=== PATIENT | male | born 1995 | race American Indian/Alaskan Native ===

== ENCOUNTER 2018-03-06 10:43 | Inpatient (IN) | payer BC, MEDICAID ==
[2018-03-06 11:59] LABS: BASO # 0.02 K/mm3 (0.0-2.0); BASO % 0.3 % (0.0-3.0); EOS # 0.6 (0.0-0.7); EOS % 7.2 % (1.5-5.0); GRAN # 4.88 (1.4-6.5); GRAN % 62.7 % (50.0-68.0); LYMPH # 1.7 (1.2-3.4); LYMPH % 22.1 % (22.0-35.0); MEAN CELL VOLUME 73.9 fl (80.0-105.0); MEAN CORPUSCULAR HEMOGLOBIN 23.4 pg (25.0-35.0); MEAN CORPUSCULAR HGB CONC 31.7 g/dl (31.0-37.0); MEAN PLATELET VOLUME 10.5 fl (7.0-11.0); MONO # 0.6 (0.1-0.6); MONO % 7.7 % (1.0-6.0); RBC 5.55 10^6/uL (3.5-6.1); RED CELL DISTRIBUTION WIDTH 13.8 % (11.5-14.5); WHITE BLOOD COUNT 7.8 10^3/ul (4.5-11.0)
[2018-03-06 12:01] LABS: URINE APPEARANCE CLEAR (CLEAR); URINE BILIRUBIN NEGATIVE (NEGATIVE); URINE BLOOD NEGATIVE (NEGATIVE); URINE COLOR YELLOW (YELLOW); URINE GLUCOSE (UA) NEGATIVE (NEGATIVE); URINE LEUKOCYTE ESTERASE NEGATIVE Leu/uL (NEGATIVE); URINE PROTEIN 30 mg/dL (<30 mg/dL); URINE UROBILINOGEN 0.2 E.U./dL (<1 E.U./dL)
--- NOTE | 2018-03-06 12:08 | ED PDOC ---
Arrival/HPI - General Historian: Patient <Meaghan Olea A - Last Filed: 03/06/18 20:07> <João Figueroa - Last Filed: 03/14/18 20:57> - General Chief Complaint: Psychiatric Evaluation Time Seen by Provider: 03/06/18 10:56 - History of Present Illness Narrative History of Present Illness (Text): 03/06/18 13:24 22yo male with PMHx of bipolar, depression who present with complaint of depression and visual hallucination x few days. Patient states he didn't take his psych medications for 2days. States he feels that people are talking about him. He sees a psychiatrist at [facility]. He denies SI/HI, somatic complaint , recent drug use. (Meaghan Olea A) Past Medical History - Provider Review Nursing Documentation Reviewed: Yes - Cardiac Hx Cardiac Disorders: No - Pulmonary Hx Respiratory Disorders: Yes Hx Asthma: Yes - Neurological Hx Neurological Disorder: No - HEENT Hx HEENT Disorder: No - Renal Hx Renal Disorder: No - Endocrine/Metabolic Hx Endocrine Disorders: No - Hematological/Oncological Hx Blood Disorders: No - Integumentary Hx Dermatological Disorder: No - Musculoskeletal/Rheumatological Hx Musculoskeletal Disorders: No - Gastrointestinal Hx Gastrointestinal Disorders: No - Genitourinary/Gynecological Hx Genitourinary Disorders: No - Psychiatric Hx Psychophysiologic Disorder: Yes Hx Bipolar Disorder: Yes Hx Depression: Yes Hx Substance Use: Yes (CANNABIS) <Meaghan Olea A - Last Filed: 03/06/18 20:07> Family/Social History - Physician Review Nursing Documentation Reviewed: Yes Family/Social History: Unknown Family HX Smoking Status: Current Some Days Smoker Hx Alcohol Use: Yes Frequency of alcohol use: Socially Hx Substance Use: Yes (CANNABIS) <Meaghan Olea A - Last Filed: 03/06/18 20:07> Allergies/Home Meds <Meaghan Olea A - Last Filed: 03/06/18 20:07> <João Figueroa - Last Filed: 03/14/18 20:57> Allergies/Adverse Reactions: Allergies No Known Allergies Allergy (Verified 03/06/18 23:48) Home Medications: Home Meds Medication Instructions Recorded Confirmed Ergocalciferol (Vitamin D2) 1 cap PO QWK 03/06/18 03/06/18 [Vitamin D2] Risperidone [Risperdal] 2 mg PO HS 03/06/18 03/06/18 Review of Systems - Physician Review All systems were reviewed & negative as marked: Yes - Review of Systems Constitutional: Normal Eyes: Normal ENT: Normal Respiratory: Normal Cardiovascular: Normal Gastrointestinal: Normal Genitourinary Male: Normal Musculoskeletal: Normal Skin: Normal Neurological: Normal Endocrine: Normal Hemo/Lymphatic: Normal Psychiatric: Depression <Meaghan Olea A - Last Filed: 03/06/18 20:07> Physical Exam Vital Signs Reviewed: Yes Temperature: Afebrile Blood Pressure: Normal Pulse: Regular Respiratory Rate: Normal Appearance: Positive for: Well-Appearing, Non-Toxic, Comfortable Pain Distress: None Mental Status: Positive for: Alert and Oriented X 3 - Systems Exam Head: Present: Atraumatic, Normocephalic Pupils: Present: PERRL Extroacular Muscles: Present: EOMI Conjunctiva: Present: Normal Mouth: Present: Moist Mucous Membranes Neck: Present: Normal Range of Motion Respiratory/Chest: Present: Clear to Auscultation, Good Air Exchange. No: Respiratory Distress, Accessory Muscle Use Cardiovascular: Present: Regular Rate and Rhythm, Normal S1, S2. No: Murmurs Abdomen: No: Tenderness, Distention, Peritoneal Signs Back: Present: Normal Inspection Upper Extremity: Present: Normal Inspection. No: Cyanosis, Edema Lower Extremity: Present: Normal Inspection. No: Edema Neurological: Present: GCS=15, CN II-XII Intact, Speech Normal Skin: Present: Warm, Dry, Normal Color. No: Rashes Psychiatric: Present: Alert, Oriented x 3, Normal Insight, Normal Concentration <Meaghan Olea A - Last Filed: 03/06/18 20:07> Vital Signs Temp Pulse Resp BP Pulse Ox 03/06/18 14:41 98.0 F 77 120/89 99 03/06/18 14:19 98.0 F 79 18 99 03/06/18 11:05 99.5 F 77 16 117/74 98 Medical Decision Making <Meaghan Olea A - Last Filed: 03/06/18 20:07> <João Figueroa - Last Filed: 03/14/18 20:57> ED Course and Treatment: 03/06/18 20:07 PT was medically cleared for psych evaluation and was seen by JANINE Pruitt. She DC with the psychiatrist and pt was admitted for bipolar EKG Sinus rhythm with 1st degree AV block @69bpm. CXR NAD Lab was unremarkable. (Meaghan Olea) - Lab Interpretations Lab Results: 03/06/18 11:52 03/06/18 11:52 Lab Results 03/06/18 11:52: Alcohol, Quantitative < 10 03/06/18 11:52: Salicylates < 1 L, Acetaminophen < 10.0 L 03/06/18 11:52: Urine Opiates Screen Negative, Urine Methadone Screen Negative, Ur Barbiturates Screen Negative, Ur Phencyclidine Scrn Negative, Ur Amphetamines Screen Negative, U Benzodiazepines Scrn Negative, U Oth Cocaine Metabols Negative, U Cannabinoids Screen Negative 03/06/18 11:52: Sodium 142, Potassium 4.3, Chloride 102, Carbon Dioxide 27, Anion Gap 17, BUN 15, Creatinine 0.9, Est GFR ( Amer) > 60, Est GFR (Non- Af Amer) > 60, Random Glucose 111 H, Calcium 10.0, Magnesium 1.8, Total Bilirubin 0.2, AST 37, ALT 60 H, Alkaline Phosphatase 49, Total Protein 7.7, Albumin 4.6, Globulin 3.2, Albumin/Globulin Ratio 1.4 03/06/18 11:52: Urine Color Yellow, Urine Appearance Clear, Urine pH 6.0, Ur Specific [place] 1.025, Urine Protein 30 H, Urine Glucose (UA) Negative, Urine Ketones Negative, Urine Blood Negative, Urine Nitrate Negative, Urine Bilirubin Negative, Urine Urobilinogen 0.2, Ur Leukocyte Esterase Negative, Urine RBC Negative, Urine WBC 0 - 2, Ur Epithelial Cells None, Urine Bacteria Mod 03/06/18 11:52: WBC 7.8, RBC 5.55, Hgb 13.0 L, Hct 41.0 L, MCV 73.9 L, MCH 23.4 L, MCHC 31.7, RDW 13.8, Plt Count 286, MPV 10.5, Gran % 62.7, Lymph % (Auto) 22.1, [place] % (Auto) 7.7 H, Eos % (Auto) 7.2 H, Baso % (Auto) 0.3, Gran # 4.88, Lymph # (Auto) 1.7, [place] # (Auto) 0.6, Eos # (Auto) 0.6, Baso # (Auto) 0.02 - RAD Interpretation Radiology Orders: 03/06/18 13:58 CHEST PORTABLE [RAD] Stat - Medication Orders Current Medication Orders: Acetaminophen (Tylenol 325mg Tab) 650 mg PO Q6H PRN PRN Reason: Pain, moderate (4-7) Al Hydrox/Mg Hydrox/Simethicone (Maalox Plus 30 Ml) 30 ml PO DAILY PRN PRN Reason: Upset Stomach Benztropine Mesylate (Cogentin) 1 mg PO [facility] Last Admin: 03/14/18 09:23 Dose: 1 mg Home Med (Home Med) 2 unit PO [facility] Last Admin: 03/14/18 09:23 Dose: 2 unit Lorazepam (Ativan) 2 mg PO Q6H PRN; Protocol PRN Reason: Anxiety Lorazepam (Ativan) 2 mg IM Q6H PRN; Protocol PRN Reason: Anxiety Magnesium Hydroxide (Milk Of Magnesia) 30 ml PO DAILY PRN PRN Reason: Constipation Olanzapine (Zyprexa) 5 mg PO TID PRN; Protocol PRN Reason: Agitation Risperidone (Risperdal Tab) 1 mg PO HS CATHLEEN PRN Reason: Protocol Last Admin: 03/13/18 21:19 Dose: 1 mg Behavioural Document 03/13/18 21:19 WP (Rec: 03/13/18 21:19 WP [id number]) Maintenance Maintenance Dose Yes Re-Assess: Reassess Psych Meds Document 03/13/18 22:19 WP (Rec: 03/13/18 23:53 WP [id number]) Reassess Psych Med Effective Zaleplon (Sonata) 5 mg PO HS PRN PRN Reason: Insomnia Last Admin: 03/12/18 21:36 Dose: 5 mg Ziprasidone (Geodon Inj) 20 mg IM Q6H PRN; Protocol PRN Reason: Agitation Discontinued Medications Acetaminophen (Tylenol 325mg Tab) 650 mg PO Q4 PRN PRN Reason: Pain, moderate (4-7) Al Hydrox/Mg Hydrox/Simethicone (Maalox Plus 30 Ml) 30 ml PO DAILY PRN PRN Reason: Indigestion / Heartburn Al Hydrox/Mg Hydrox/Simethicone (Maalox Plus 30 Ml) 30 ml PO DAILY PRN PRN Reason: Upset Stomach Benztropine Mesylate (Cogentin) 0.5 mg PO [facility] Last Admin: 03/09/18 09:16 Dose: 0.5 mg Home Med (Home Med) 1 unit PO [facility] Last Admin: 03/09/18 09:18 Dose: 1 unit Home Med (Home Med) 1 unit PO QAM [facility] Stop: 03/09/18 22:30 Home Med (Home Med) 2 unit PO HS [facility] Stop: 03/10/18 22:30 Last Admin: 03/10/18 21:54 Dose: 2 unit Home Med (Home Med) 2 unit PO [facility] Stop: 03/23/18 10:01 Last Admin: 03/11/18 09:54 Dose: 2 unit Home Med (Home Med) 1 unit PO QAM [facility] Stop: 03/10/18 22:30 Last Admin: 03/10/18 10:21 Dose: 1 unit Magnesium Hydroxide (Milk Of Magnesia) 30 ml PO DAILY PRN PRN Reason: Constipation Risperidone (Risperdal Tab) 1 mg PO DAILY CATHLEEN PRN Reason: Protocol Last Admin: 03/09/18 08:21 Dose: 1 mg Behavioural Document 03/09/18 08:21 CV (Rec: 03/09/18 08:21 CV [id number]) Maintenance Maintenance Dose Yes Nonmedicinal Nonmedicinal Interventions Therapeutic Communication Re-Assess: Reassess Psych Meds Document 03/09/18 09:21 CV (Rec: 03/09/18 13:37 CV [id number]) Reassess Psych Med Effective Risperidone (Risperdal Tab) 2 mg PO [facility] PRN Reason: Protocol Last Admin: 03/08/18 21:27 Dose: 2 mg Behavioural Document 03/08/18 21:27 WP (Rec: 03/08/18 21:27 WP [id number]) Maintenance Maintenance Dose Yes Re-Assess: Reassess Psych Meds Document 03/08/18 22:27 WP (Rec: 03/08/18 23:49 WP [id number]) Reassess Psych Med Effective - PA / CRISIS COUNSELOR / Resident Statement / has reviewed & agrees with the documentation as recorded. <João Figueroa - Last Filed: 03/14/18 20:57> Disposition/Present on Arrival - Present on Arrival Any Indicators Present on Arrival: No History of DVT/PE: No History of Uncontrolled Diabetes: No Urinary Catheter: No History of Decub. Ulcer: No History Surgical Site Infection Following: None - Disposition Have Diagnosis and Disposition been Completed?: Yes Disposition Time: 14:00 <Meaghan Olea - Last Filed: 03/06/18 20:07> <João Figueroa - Last Filed: 03/14/18 20:57> - Disposition Diagnosis: Depression, Bipolar 1 disorder Disposition: HOSPITALIZED Patient Problems: Current Active Problems Problem Status Onset Bipolar 1 disorder Acute Depression Acute Schizoaffective disorder Acute Condition: STABLE
[2018-03-06 12:12] LABS: URINE BACTERIA MOD (NEG); URINE RBC NEGATIVE /hpf (0-2); URINE WBC 0 - 2 /hpf (0-6)
[2018-03-06 12:42] LABS: BARBITURATES, UR NEGATIVE (NEGATIVE); BENZODIAZEPINES, UR NEGATIVE (NEGATIVE); OPIATES, UR NEGATIVE (NEGATIVE); PHENCYCLIDINE, UR NEGATIVE (NEGATIVE)
[2018-03-06 14:06] LABS: ACETAMINOPHEN < 10.0 ug/ml (10.0-20.0); ALB/GLOB RATIO 1.4 (1.1-1.8); ALBUMIN 4.6 g/dL (3.0-4.8); ALT/SGPT 60 U/L (7-56); AST/SGOT 37 U/L (17-59); BLOOD UREA NITROGEN 15 mg/dL (7-21); GFR AFRICAN-AMERICAN > 60; GFR NON-AFRICAN AMERICAN > 60; SALICYLATE < 1 mg/dL (2.0-20.0)
[2018-03-06 14:19] VITALS: O2SAT 99
--- NOTE | 2018-03-06 14:47 | RAD ---
HISTORY: admission COMPARISON: No prior. FINDINGS: LUNGS: No active pulmonary disease. PLEURA: No significant pleural effusion identified, no pneumothorax apparent. CARDIOVASCULAR: Normal. OSSEOUS STRUCTURES: No significant abnormalities. VISUALIZED UPPER ABDOMEN: Normal. OTHER FINDINGS: None. IMPRESSION: No active disease.
[2018-03-06] MEDS ORDERED: Alum-Mag Hydrox-Simethicone Susp (30 mL) PO PRN ×3 (16:49→17:35)
[2018-03-06] MEDS ORDERED: Magnesium Hydroxide Susp 30 ml UD PO PRN ×2 (16:49→17:33)
--- NOTE | 2018-03-06 17:06 | PCM.BM ---
<Geoff Fan - Last Filed: 03/06/18 17:03> Treatment Plan Problems - Problems identified on initial assessmt Ineffective coping Date Initiated: 03/06/18 Time Initiated: 16:45 Assessment reference: NA Status: Active Priority: 1 Comment: Impaired decision making Hopelessness Date Initiated: 03/06/18 Time Initiated: 16:45 Assessment reference: NA Status: Active Priority: 2 Comment: Impaired dicision making Altered Sleep Pattern Date Initiated: 03/06/18 Time Initiated: 16:45 Assessment reference: NA Status: Active Priority: 3 Comment: Poor sleep,2-3 hours at night. Treatment assets and liabiliti Patient Assests: cooperative, motivated, ADL independent, good support system, negotiates basic needs - Milieu Protocol Maintain good personal hygiene: every shift Encourage regular showers, every shift Remind patient to perform daily oral care, every shift Assist patient to perform ADL's Conduct patient checks and document Observation sheet: Q15 minutes Maintain personal safety: every shift Educate patient to report safety concerns to staff, every shift Monitor environment for contraband/sharps Medication safety: Monitor for expected outcome, potential side effects: every shift, Assess barriers to learning: every shift, Assess readiness for medication education: every shift Discharge/Continuing Care - Education Needs Education Needs: Patient Medication, Patient Diagnosis/Disease Process, Patient Coping Skills, Patient Community resources, Patient Activities of Daily Living, Patient Nutrition, Patient Health Practices/Safety, Patient Personal Hygiene/ Grooming - Discharge Discharge Criteria: Normal sleep pattern, Reduction of target symptoms Discharge to:: Home <Raeann Ramesh - Last Filed: 03/09/18 12:57> - Diagnosis (1) Schizoaffective disorder Status: Acute Interventions: 03/07/18 15:51 Psychoeducation/psychotherapy Psychopharmacology/adjustment of medications as needed/ monitoring possible side effects Evaluate pt on daily basis Compliance with medications and follow up appointments Long acting medication if pt is noncompliant with pill form Suicide and homicide risk assessment and prevention, coping strategies, safety plan Relapse prevention Reduction of symptoms Improve functional status Possible assertive community treatment Cognitive behavioral therapy Family involvement Possible social skill training as outpatient <Delmis Landry - Last Filed: 03/09/18 15:37> Family Contact Family involvement: Family/SO is involved Family contact: Patient agrees to contact Family contact name: Venice Nunn(mother) [phone] Family contacted how many times per week?: 2 - Outside Agency [facility] Care involvment: Information-sharing Agency contact name: [facility] Health Clinic Agency contact number: [phone]
--- NOTE | 2018-03-06 18:20 | CARD ---
APPROVED REPORT EKG Measurement Heart [id number] <Conclusion> Sinus rhythm with sinus arrhythmia with 1st degree AV block Otherwise normal ECG
[2018-03-07 08:27] LABS: GLUCOSE,FASTING 91 mg/dL (65-110); HDL CHOLESTEROL 52 mg/dL (29-60)
[2018-03-07 08:38] LABS: LDL CHOLESTEROL 32 mg/dL (0-129)
[2018-03-07 08:43] LABS: FREE T4 0.8 ng/dL (0.78-2.19)
--- NOTE | 2018-03-07 15:50 | PCM.PSYCH ---
Initial Psychiatric Evaluation - Initial Psychiatric Evaluation Type of Admission: Voluntary Legal Status: Capacity (patient has capacity to sign consent for treatment) Chief Complaint (in patient's own words): "I needed to leave my job because I felt people were talking about me, I was staying on streets, just wondering should I or not, it was just thought, I did not act on it, I was thinking about drowning...." Patient's Reaction to Hospitalization: pt was admitted to the psychiatric inpatient unit for evaluation of psychosis, disorganized behavior, possible suicidal ideation, pt was compliant with meds but dose was decreased recently. History of Present Illness and Precipitating Events: shortly patient is 22-year male with self reported h/o bipolar disorder (most likely pt has schizophrenia spectrum vs schizoaffective disorder), two previous psychiatric admissions, both to [place] [facility] [place], pt was following up by [facility] [place], pt was brought to the hospital by [facility] for evaluation of psychotic, disorganized behavior, pt disappeared from the house for two days prior this admission, pt was feeling paranoid, was not able to function, was hearing voices, pt also had thoughts of suicide by jumping into the water and drowning himself (pt did not act on it), pt does not know how to swim. pt failed outpatient program, needs further evaluation, stabilization, meds adjustment. pt was seen and examined discussed with staff and pt's mother yesterday prior to admission. pt was seen at the treatment team meeting room with a medical student. pt presented with acceptable personal hygiene, seems to be careless abut his appearance, good ADLs, not shaved, wears baggy clothing. Pt seems to be reliable historian, at the same time pt's thought process seems to be mildly disorganized, pt also had inappropriate affect and was giggling inappropriately. pt said that the dose of the risperdal was decreased recently and he started to feel "unease", pt said that he was feeling that people were talking about him and looking at him in certain way, pt said he was feeling so bad that he needed "to leave my job earlier", pt said he was wondering on streets, pt said he was hearing voices "male and female, they put me down" pt denied command type hallucinations, pt denied that he ever act on the voices, pt said voices were commenting on his behavior. Pt said "I was staying on streets, I thought about life, I thought may be I need to end it all, I thought about drowning, I don't know how to swim", at the same time pt said "It was just thought". pt also said that he never tried to kill self, contracted for safety during the interview. pt denied h/o being abused. pt denied panic symptoms, denied MENDOZA symptoms. pt said he has h/o smoking Marijuana, but not presently, pt reported that he smoked once while was wondering on streets. pt denied smoking cigarettes, denied drinking alcohol. Past psychiatric h/o: pt said he was officially dx with bipolar disorder, but on further questioning pt said that he had elevated mood and feeling great "in my childhood, since age of 6 till 18", pt said pt had "manic episodes in this which led pt to the hospitalization to [place] [facility], which was related to the fact that pt was noncompliant with risperdal "I thought I was doing fine , I decided to stop and within two months I was admitted to the Hospital". 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 Family h/o: this property underwriter spoke to the pt's mother, pt gave permission, as per mother both sides of the family have h/o mental illness, not known h/o suicidal attempts. as per mother pt's risperdal was decreased from 4mg po daily to 2mg hs. as per mother pt was "I see people laughing" and auditory hallucinations "I hear voices that put me down". as per staff pt is calm and cooperative, compliant with meds, but not participating in unit activities. 03/06/18 11:52 03/06/18 11:52 Lab Results 03/07/18 08:00: Free T4 0.80, TSH 3rd Generation 1.71 03/07/18 08:00: Fasting Glucose 91, Triglycerides 172 H, Cholesterol 121 L, LDL Cholesterol Direct 32, HDL Cholesterol 52 03/06/18 11:52: Alcohol, Quantitative < 10 03/06/18 11:52: Salicylates < 1 L, Acetaminophen < 10.0 L 03/06/18 11:52: Urine Opiates Screen Negative, Urine Methadone Screen Negative, Ur Barbiturates Screen Negative, Ur Phencyclidine Scrn Negative, Ur Amphetamines Screen Negative, U Benzodiazepines Scrn Negative, U Oth Cocaine Metabols Negative, U Cannabinoids Screen Negative 03/06/18 11:52: Sodium 142, Potassium 4.3, Chloride 102, Carbon Dioxide 27, Anion Gap 17, BUN 15, Creatinine 0.9, Est GFR ( Amer) > 60, Est GFR (Non- Af Amer) > 60, Random Glucose 111 H, Calcium 10.0, Magnesium 1.8, Total Bilirubin 0.2, AST 37, ALT 60 H, Alkaline Phosphatase 49, Total Protein 7.7, Albumin 4.6, Globulin 3.2, Albumin/Globulin Ratio 1.4 03/06/18 11:52: Urine Color Yellow, Urine Appearance Clear, Urine pH 6.0, Ur Specific [place] 1.025, Urine Protein 30 H, Urine Glucose (UA) Negative, Urine Ketones Negative, Urine Blood Negative, Urine Nitrate Negative, Urine Bilirubin Negative, Urine Urobilinogen 0.2, Ur Leukocyte Esterase Negative, Urine RBC Negative, Urine WBC 0 - 2, Ur Epithelial Cells None, Urine Bacteria Mod 03/06/18 11:52: WBC 7.8, RBC 5.55, Hgb 13.0 L, Hct 41.0 L, MCV 73.9 L, MCH 23.4 L, MCHC 31.7, RDW 13.8, Plt Count 286, MPV 10.5, Gran % 62.7, Lymph % (Auto) 22.1, [place] % (Auto) 7.7 H, Eos % (Auto) 7.2 H, Baso % (Auto) 0.3, Gran # 4.88, Lymph # (Auto) 1.7, [place] # (Auto) 0.6, Eos # (Auto) 0.6, Baso # (Auto) 0.02 Vital Signs Temp Pulse Resp BP Pulse Ox 03/07/18 07:00 98.2 F 78 80 H 103/70 03/07/18 06:52 98.2 F 78 20 103/70 03/06/18 14:41 98.0 F 77 120/89 99 03/06/18 14:19 98.0 F 79 18 99 03/06/18 11:05 99.5 F 77 16 117/74 98 Current Medications: Active Medications Generic Name Dose Route Start Last Admin Trade Name Freq PRN Reason Stop Dose Admin Acetaminophen 650 mg 03/06/18 16:47 Tylenol 325mg Tab PO Q6H PRN Pain, moderate (4-7) Al Hydrox/Mg Hydrox/Simethicone 30 ml 03/06/18 17:35 Maalox Plus 30 Ml PO DAILY PRN Upset Stomach Lorazepam 2 mg 03/06/18 17:30 Ativan PO Q6H PRN Anxiety Protocol Lorazepam 2 mg 03/06/18 17:31 Ativan IM Q6H PRN Anxiety Protocol Magnesium Hydroxide 30 ml 03/06/18 16:49 Milk Of Magnesia PO DAILY PRN Constipation Olanzapine 5 mg 03/06/18 17:28 Zyprexa PO TID PRN Agitation Protocol Risperidone 1 mg 03/07/18 08:00 03/07/18 08:52 Risperdal Tab PO 1 mg DAILY CATHLEEN Administration Protocol Risperidone 2 mg 03/06/18 22:00 03/06/18 21:37 Risperdal Tab PO 2 mg HS CATHLEEN Administration Protocol Zaleplon 5 mg 03/06/18 17:29 03/06/18 21:37 Sonata PO 5 mg HS PRN Administration Insomnia Ziprasidone 20 mg 03/06/18 17:32 Geodon Inj IM Q6H PRN Agitation Protocol Past Psychiatric History - Past Psychiatric History Previous Treatment History: Inpatient Prior Professional Help: see HPI Prior Psychiatric Treatment: see HPI At what hospital: see HPI Duration: see HPI Nature of Treatment: see HPI Explanation of prior treatment: see HPI History of Abuse: see HPI History of ETOH/Drug Use: see HPI History of Family Illness: see HPI Pertinent Medical Hx (Current Medical&Sleep Prob, Allergies): Allergies Allergy/AdvReac Type Severity Reaction Status Date / Time No Known Allergies Allergy Verified 03/06/18 23:48 Ergocalciferol (Vitamin D2) [Vitamin D2] 1 cap PO QWK 03/06/18 Risperidone [Risperdal] 2 mg PO HS 03/06/18 Review of Systems - Review of Systems Systems not reviewed;Unavailable: Acuity of Condition - EENT Eyes: As Per HPI Ears: As Per HPI Nose/Mouth/Throat: As Per HPI - Cardiovascular Cardiovascular: As Per HPI - Respiratory Respiratory: As Per HPI - Gastrointestinal Gastrointestinal: As Per HPI - Genitourinary Genitourinary: As Per HPI - Reproductive: Male Reproductive:Male: As Per HPI - Musculoskeletal Musculoskeletal: As Par HPI - Integumentary Integumentary: As Per HPI - Neurological Neurological: As Per HPI - Psychiatric Psychiatric: As Per HPI - Endocrine Endocrine: As Per HPI - Hematologic/Lymphatic Hematologic: As Per HPI Mental Status Examination - Personal Presentation Personal Presentation: Looks stated age - Affect Affect: Flat - Motor Activity Motor Activity: Calm - Reliability in Providing Information Reliability in Providing Information: Fair - Speech Speech: Disorganized - Formal Thought Process Formal Thought Process: Hallucinations, Delusions, Paranoia, Loosening of associations, Circumstantial - Obsessions/Compulsions Obsessions: None Compulsions: None - Cognitive Functions Orientation: Person, Place, Situation Sensorium: Alert Attention/Concentration: Easily distracted Abstract Thinking: Grandy Estimate of Intelligence: Average Judgement: Intact, as evidence by: Insight regarding need for hospitalization - Risk Risk: Diminished functioning - Strength & Assets Inventory Strength & Assets Inventory: Intelligence, Family support, Employment status, Employment history, Cooperative - Limitations Limitations: Other (severeness of the symptoms) DSM 5 DX - DSM 5 DSM 5 Diagnosis: r/o schizoaffective disorder r/o bipolar disorder with psychosis r/o schizophrenia - Recommended/Plan of Treatment Treatment Recommendations and Plan of Treatment: Milieu/structure/supportive therapy Medical consult appreciated, see medical team note for more detailed info SW consultation for discharge plan and social issues Med management pt wants to be resumed on Risperdal, which will be increased to 3mg po daily for psychosis cogentin 0.5mg po twice a day PRN meds Family involvement, collaterals appreciated (mother) Follow up on labs Will monitor closely Pt was educated about risk/benefits and alternatives of medications, coping strategies (safety plan, suicide prevention), relapse prevention, importance of follow up with psychiatrist and therapist, stay away from drugs/alcohol/smoking Projected ELOS: 7days Prognosis: fair Discharge Plan and Discharge Criteria: Pt will be not depressed or manic, will be more hopeful, will be not psychotic or anxious, will be not having thoughts of harming self or others, will be tolerating medications well, will not have major side effects, will be able to function, will not pose threat to self or others. - Smoking Cessation Smoking Cessation Initiated: No Reason for not providing: pt denied smoking
--- NOTE | 2018-03-08 11:40 | PCM.PYCHPN ---
Psychiatric Progress Note - Psychiatric Progress Note Patient seen today, length of contact: 30min Patient Chief Complaint: "I am doing alright" Problems Identified/Issues Discussed: Suicide/ homicide prevention, past psychiatric h/o, current psychiatric symptoms , medical problems, risk/benefits and alternatives of medications, medications compliance, coping strategies, substance abuse h/o, relapse prevention, importance of follow up with psychiatrist and therapist, discharge plan. Medical Problems: pt denied any major medical issues pt is overweight Diagnostic Results: 03/06/18 11:52 03/06/18 11:52 Lab Results 03/07/18 08:00: RPR Nonreactive 03/07/18 08:00: Free T4 0.80, TSH 3rd Generation 1.71 03/07/18 08:00: Fasting Glucose 91, Triglycerides 172 H, Cholesterol 121 L, LDL Cholesterol Direct 32, HDL Cholesterol 52 03/06/18 11:52: Alcohol, Quantitative < 10 03/06/18 11:52: Salicylates < 1 L, Acetaminophen < 10.0 L 03/06/18 11:52: Urine Opiates Screen Negative, Urine Methadone Screen Negative, Ur Barbiturates Screen Negative, Ur Phencyclidine Scrn Negative, Ur Amphetamines Screen Negative, U Benzodiazepines Scrn Negative, U Oth Cocaine Metabols Negative, U Cannabinoids Screen Negative 03/06/18 11:52: Sodium 142, Potassium 4.3, Chloride 102, Carbon Dioxide 27, Anion Gap 17, BUN 15, Creatinine 0.9, Est GFR ( Amer) > 60, Est GFR (Non- Af Amer) > 60, Random Glucose 111 H, Calcium 10.0, Magnesium 1.8, Total Bilirubin 0.2, AST 37, ALT 60 H, Alkaline Phosphatase 49, Total Protein 7.7, Albumin 4.6, Globulin 3.2, Albumin/Globulin Ratio 1.4 03/06/18 11:52: Urine Color Yellow, Urine Appearance Clear, Urine pH 6.0, Ur Specific [place] 1.025, Urine Protein 30 H, Urine Glucose (UA) Negative, Urine Ketones Negative, Urine Blood Negative, Urine Nitrate Negative, Urine Bilirubin Negative, Urine Urobilinogen 0.2, Ur Leukocyte Esterase Negative, Urine RBC Negative, Urine WBC 0 - 2, Ur Epithelial Cells None, Urine Bacteria Mod 03/06/18 11:52: WBC 7.8, RBC 5.55, Hgb 13.0 L, Hct 41.0 L, MCV 73.9 L, MCH 23.4 L, MCHC 31.7, RDW 13.8, Plt Count 286, MPV 10.5, Gran % 62.7, Lymph % (Auto) 22.1, [place] % (Auto) 7.7 H, Eos % (Auto) 7.2 H, Baso % (Auto) 0.3, Gran # 4.88, Lymph # (Auto) 1.7, [place] # (Auto) 0.6, Eos # (Auto) 0.6, Baso # (Auto) 0.02 Vital Signs Temp Pulse Resp BP Pulse Ox 03/08/18 07:23 97.4 F L 57 L 20 107/64 03/07/18 16:00 66 131/73 03/07/18 07:00 98.2 F 78 80 H 103/70 03/07/18 06:52 98.2 F 78 20 103/70 03/06/18 14:41 98.0 F 77 120/89 99 03/06/18 14:19 98.0 F 79 18 99 03/06/18 11:05 99.5 F 77 16 117/74 98 DSM 5 Symptoms Update: shortly patient is 22-year male with self reported h/o bipolar disorder (most likely pt has schizophrenia spectrum vs schizoaffective disorder), two previous psychiatric admissions, both to [place] [facility] [place], pt was following up by [facility] outpatient program, pt was brought to the hospital by [facility] for evaluation of psychotic, disorganized behavior, pt disappeared from the house for two days prior this admission, pt was feeling paranoid, was not able to function, was hearing voices, pt also had thoughts of suicide by jumping into the water and drowning himself (pt did not act on it), pt does not know how to swim. pt failed outpatient program, needs further evaluation, stabilization, meds adjustment. pt was seen and examined at the treatment team meeting, discussed with staff. as per staff pt is compliant with medications no agitation or aggression. pt still presented to be disorganized, at times smiling and laughing inappropriately. as per pt he slept well. pt reported he feels comfortable in the unit, pt denied v/a/t hallucinations, but at times appears to be internally preoccupied and guarded. pt asked about CBT therapy, does not really know what is it for, this abstract writer was educated that initially his psychosis needs to be addressed, most likely pt was feeling depressed and anxious in context of his psychosis, pt agreed. pt was educated about Invega and possible injectable form, risk, benefits and alternatives discussed, pt is willing to take this medication, but not sure about Invega sustenna. this abstract writer called in for prescription [place]ga 3mg bid [place] [facility] Impression: r/o schizophrenia r/o schizoaffective disorder Medication Change: Yes (invega 3mg po amhs) Medical Record Reviewed: Yes Consults ordered or reviewed: pt is relatively healthy, will consider to call if pt will have any physical complaints. Mental Status Examination - Cognitive Function Orientation: Person, Place, Situation Memory: Intact Attention: Poor Concentration: Poor Association: Loose Fund of Knowledge: WNL - Mood Mood: Neutral - Affect Affect: Constricted (some reactivity, at times pt smiles inappropriately) - Speech Speech: Soft - Formal Thought Process Formal Thought Process: Hallucinations, Delusions, Paranoia, Loosening of associations, Circumstantial - Suicidal Ideation Suicidal Ideation: No - Homicidal Ideation Homicidal Ideation: No Goal/Treatment Plan - Goal/Treatment Plan Need for Continued Stay: Remain at risks for inpatient hospitalization, Severe depression anxiety, Discharge may exacerbated symptoms, Severe functional impairment Progress Toward Problem(s) and Goals/Treatment Plan: Milieu/structure/supportive therapy Medical consult appreciated, see medical team note for more detailed info SW consultation for discharge plan and social issues Med management pt wants to be resumed on Risperdal, which will be increased to 3mg po daily for psychosis pt was willing to try Invega, 3mg po bid started for psychosis with the plan to d/c risperdal cogentin 0.5mg po twice a day PRN meds Family involvement, collaterals appreciated (mother) Follow up on labs Will monitor closely Pt was educated about risk/benefits and alternatives of medications, coping strategies (safety plan, suicide prevention), relapse prevention, importance of follow up with psychiatrist and therapist, stay away from drugs/alcohol/smoking Estimated Date of D/C: 03/13/18
[2018-03-08] MEDS ORDERED: PALIPERIDONE 3 MG PO SCH (16:00)
[2018-03-08] MEDS: INVEGA 3 MG PO SCH (21:28)
[2018-03-09] MEDS: INVEGA 3 MG PO SCH ×2 (09:18→21:23)
[2018-03-09] MEDS ORDERED: INVEGA 3 MG PO SCH (15:57)
--- NOTE | 2018-03-09 15:59 | PCM.PYCHPN ---
Psychiatric Progress Note - Psychiatric Progress Note Patient seen today, length of contact: 30min Patient Chief Complaint: "I am doing alright, I think medication is working" Problems Identified/Issues Discussed: Suicide/ homicide prevention, past psychiatric h/o, current psychiatric symptoms , medical problems, risk/benefits and alternatives of medications, medications compliance, coping strategies, substance abuse h/o, relapse prevention, importance of follow up with psychiatrist and therapist, discharge plan. Medical Problems: pt denied any major medical issues pt is overweight Diagnostic Results: 03/06/18 11:52 03/06/18 11:52 Lab Results 03/07/18 08:00: RPR Nonreactive 03/07/18 08:00: Free T4 0.80, TSH 3rd Generation 1.71 03/07/18 08:00: Fasting Glucose 91, Triglycerides 172 H, Cholesterol 121 L, LDL Cholesterol Direct 32, HDL Cholesterol 52 03/06/18 11:52: Alcohol, Quantitative < 10 03/06/18 11:52: Salicylates < 1 L, Acetaminophen < 10.0 L 03/06/18 11:52: Urine Opiates Screen Negative, Urine Methadone Screen Negative, Ur Barbiturates Screen Negative, Ur Phencyclidine Scrn Negative, Ur Amphetamines Screen Negative, U Benzodiazepines Scrn Negative, U Oth Cocaine Metabols Negative, U Cannabinoids Screen Negative 03/06/18 11:52: Sodium 142, Potassium 4.3, Chloride 102, Carbon Dioxide 27, Anion Gap 17, BUN 15, Creatinine 0.9, Est GFR ( Amer) > 60, Est GFR (Non- Af Amer) > 60, Random Glucose 111 H, Calcium 10.0, Magnesium 1.8, Total Bilirubin 0.2, AST 37, ALT 60 H, Alkaline Phosphatase 49, Total Protein 7.7, Albumin 4.6, Globulin 3.2, Albumin/Globulin Ratio 1.4 03/06/18 11:52: Urine Color Yellow, Urine Appearance Clear, Urine pH 6.0, Ur Specific [place] 1.025, Urine Protein 30 H, Urine Glucose (UA) Negative, Urine Ketones Negative, Urine Blood Negative, Urine Nitrate Negative, Urine Bilirubin Negative, Urine Urobilinogen 0.2, Ur Leukocyte Esterase Negative, Urine RBC Negative, Urine WBC 0 - 2, Ur Epithelial Cells None, Urine Bacteria Mod 03/06/18 11:52: WBC 7.8, RBC 5.55, Hgb 13.0 L, Hct 41.0 L, MCV 73.9 L, MCH 23.4 L, MCHC 31.7, RDW 13.8, Plt Count 286, MPV 10.5, Gran % 62.7, Lymph % (Auto) 22.1, [place] % (Auto) 7.7 H, Eos % (Auto) 7.2 H, Baso % (Auto) 0.3, Gran # 4.88, Lymph # (Auto) 1.7, [place] # (Auto) 0.6, Eos # (Auto) 0.6, Baso # (Auto) 0.02 Vital Signs Temp Pulse Resp BP Pulse Ox 03/08/18 07:23 97.4 F L 57 L 20 107/64 03/07/18 16:00 66 131/73 03/07/18 07:00 98.2 F 78 80 H 103/70 03/07/18 06:52 98.2 F 78 20 103/70 03/06/18 14:41 98.0 F 77 120/89 99 03/06/18 14:19 98.0 F 79 18 99 03/06/18 11:05 99.5 F 77 16 117/74 98 DSM 5 Symptoms Update: shortly patient is 22-year male with self reported h/o bipolar disorder (most likely pt has schizophrenia spectrum vs schizoaffective disorder), two previous psychiatric admissions, both to the [facility] [place] involuntary unit, pt was following up by [facility] outpatient program, pt was brought to the hospital by [facility] for evaluation of psychotic, disorganized behavior, pt disappeared from the house for two days prior this admission, pt was feeling paranoid, was not able to function, was hearing voices, pt also had thoughts of suicide by jumping into the water and drowning himself (pt did not act on it), pt does not know how to swim. pt failed outpatient program, needs further evaluation, stabilization, meds adjustment. pt was seen and examined at the dinning area. as per staff pt is compliant with medications no agitation or aggression. pt still presented to be disorganized, at times smiling and laughing inappropriately. pt reported tolerating meds well, willing to increase dose of invega. as per pt he slept well. pt reported he feels comfortable in the unit, pt denied v/a/t hallucinations, but at times appears to be internally preoccupied and guarded. pt was educated about Invega injectable form, risk, benefits and alternatives discussed, but not sure about Invega sustenna. this curriculum writer called in for prescription for invega to [facility] [place] pharmacy Impression: r/o schizophrenia r/o schizoaffective disorder Medication Change: Yes (invega 3mg po am 6mg hs, risperdal decreased) Medical Record Reviewed: Yes Consults ordered or reviewed: pt is relatively healthy, will consider to call if pt will have any physical complaints. Mental Status Examination - Cognitive Function Orientation: Person, Place, Situation Memory: Intact Attention: Poor (some improvement) Concentration: Poor (some improvement) Association: Loose (some improvement) Fund of Knowledge: WNL - Mood Mood: Neutral - Affect Affect: Constricted (some reactivity, at times pt smiles inappropriately) - Speech Speech: Soft - Formal Thought Process Formal Thought Process: Hallucinations, Delusions, Paranoia, Loosening of associations, Circumstantial - Suicidal Ideation Suicidal Ideation: No - Homicidal Ideation Homicidal Ideation: No Goal/Treatment Plan - Goal/Treatment Plan Need for Continued Stay: Remain at risks for inpatient hospitalization, Severe depression anxiety, Discharge may exacerbated symptoms, Severe functional impairment Progress Toward Problem(s) and Goals/Treatment Plan: Milieu/structure/supportive therapy Medical consult appreciated, see medical team note for more detailed info SW consultation for discharge plan and social issues Med management Risperdal is on tapering dose now because pt was initiated on Invega and seems tolerating it well Invega, 3mg po bid started 03/08/18, tonight pt will be on 6mg hs Invega then will be increased 03/11/18 6mg amhs for psychosis PHARMACY IS AWARE, ORDERS ARE IN COMPUTER cogentin 1mg po amhs for EPS PRN meds Family involvement, collaterals appreciated (mother) Follow up on labs Will monitor closely Pt was educated about risk/benefits and alternatives of medications, coping strategies (safety plan, suicide prevention), relapse prevention, importance of follow up with psychiatrist and therapist, stay away from drugs/alcohol/smoking Estimated Date of D/C: 03/13/18
[2018-03-10] MEDS ORDERED: INVEGA 3 MG PO SCH (10:00)
--- NOTE | 2018-03-10 12:42 | PCM.PYCHPN ---
Psychiatric Progress Note - Psychiatric Progress Note Patient seen today, length of contact: 25 min Problems Identified/Issues Discussed: Patient is 22-year male with self reported h/o bipolar disorder (most likely pt has schizophrenia spectrum vs schizoaffective disorder), two previous psychiatric [place], [place] [facility] [place], + compliance with [facility] [place] who was brought in by [facility] for evaluation of psychotic, paranoid and disorganized behavior. I reviewed recent notes which indicate that patient continues to be odd but improving in relatedness on the unit. He generally keeps himself and there have been no recent behavioral issues thus far. He has been going to groups and demonstrating good appetite on the unit. Today at bedside, he reports that he is sleeping well and mood is getting better. Affect is mildly guarded and flat. His responses are generally coherent and related to questioning. He does not demonstrate profound disorganization or evidence of paranoid delusions. And he denies having any hallucinations this morning. Patient is compliant with his medications and denies any new side effects discomfort or pain. Insight and judgment are improving. Diagnostic Results: r/o schizophrenia r/o schizoaffective disorder Medication Change: Yes (invega 3mg po am 6mg hs, risperdal decreased) Medical Record Reviewed: Yes Mental Status Examination - Cognitive Function Orientation: Person, Place, Situation Memory: Intact Attention: WNL (some improvement) Concentration: Poor (some improvement) Association: Loose (some improvement) Fund of Knowledge: WNL - Mood Mood: Neutral - Affect Affect: Constricted (some reactivity, at times pt smiles inappropriately) - Speech Speech: Soft - Formal Thought Process Formal Thought Process: Hallucinations (denied), Delusions (none elicited), Paranoia (mildly guarded), Loosening of associations (not overtly disorganized) , Circumstantial - Suicidal Ideation Suicidal Ideation: No - Homicidal Ideation Homicidal Ideation: No Goal/Treatment Plan - Goal/Treatment Plan Need for Continued Stay: Remain at risks for inpatient hospitalization, Severe depression anxiety, Discharge may exacerbated symptoms, Severe functional impairment Progress Toward Problem(s) and Goals/Treatment Plan: * c/w current tx and plan * No new lab results noted today thus far * Vitals reviewed and noted below: Selected Entries 03/10/18 06:49 Temperature 98.1 F Pulse Rate 73 Respiratory 20 Rate Blood Pressure 130/65 Estimated Date of D/C: 03/13/18
[2018-03-10] MEDS: INVEGA 3 MG PO SCH (21:54)
[2018-03-11] MEDS ORDERED: INVEGA 3 MG PO SCH (10:00)
--- NOTE | 2018-03-11 10:25 | PCM.PYCHPN ---
Psychiatric Progress Note - Psychiatric Progress Note Patient seen today, length of contact: 25 min Problems Identified/Issues Discussed: Patient is 22-year male with self reported h/o bipolar disorder (most likely pt has schizophrenia spectrum vs schizoaffective disorder), two previous psychiatric admissions, both to [place] [facility] [place], + compliance with [facility] outpatient program who was brought in by [facility] for evaluation of psychotic, paranoid and disorganized behavior. I reviewed recent notes which indicate that patient has been improving in mood and relatedness. He is more visible, interactive and friendly on the unit. SW spoke with patient's mother yesterday and mother felt that patient appeared "better" in which he was calmer and more rational'. Today at bedside, patient reports that he is feeling better and denies any new concerns. Tolerating medications and doesn't have any complaints. Sleeping and eating well. His responses remainy coherent and related to questioning. He does not demonstrate profound disorganization or evidence of paranoid delusions. And he denies having any hallucinations. Insight and judgment are improving. Diagnostic Results: r/o schizophrenia r/o schizoaffective disorder Medication Change: No ( ) Medical Record Reviewed: Yes Mental Status Examination - Cognitive Function Orientation: Person, Place, Situation Memory: Intact Attention: WNL (some improvement) Concentration: Poor (some improvement) Association: Loose (some improvement) Fund of Knowledge: WNL - Mood Mood: Neutral - Affect Affect: Constricted (some reactivity, at times pt smiles inappropriately) - Speech Speech: Soft - Formal Thought Process Formal Thought Process: Hallucinations (denied), Delusions (none elicited), Paranoia (mildly guarded), Loosening of associations (not overtly disorganized) , Circumstantial - Suicidal Ideation Suicidal Ideation: No - Homicidal Ideation Homicidal Ideation: No Goal/Treatment Plan - Goal/Treatment Plan Need for Continued Stay: Remain at risks for inpatient hospitalization, Severe depression anxiety, Discharge may exacerbated symptoms, Severe functional impairment Progress Toward Problem(s) and Goals/Treatment Plan: * c/w current tx and plan * No new lab results noted today thus far * Vitals reviewed and noted below: Selected Entries 03/11/18 07:01 Temperature 98.1 F Pulse Rate 60 Respiratory 20 Rate Blood Pressure 104/52 L Estimated Date of D/C: 03/13/18
[2018-03-11] MEDS: INVEGA 3 MG PO SCH (23:42)
[2018-03-12] MEDS: INVEGA 3 MG PO SCH ×2 (09:35→21:35)
--- NOTE | 2018-03-12 10:58 | PCM.PYCHPN ---
Psychiatric Progress Note - Psychiatric Progress Note Patient seen today, length of contact: 25 min Problems Identified/Issues Discussed: Patient is 22-year male with self reported h/o bipolar disorder (most likely pt has schizophrenia spectrum vs schizoaffective disorder), two previous psychiatric admissions, both to the [facility] [place] [place] unit, + compliance with [facility] outpatient program who was brought in by [facility] for evaluation of psychotic, paranoid and disorganized behavior. I reviewed recent notes which indicate that patient has been improving in mood and relatedness. He is more visible, interactive and friendly on the unit. SW spoke with patient's mother on Tuesday and mother felt that patient appeared "better" in which he was calmer and more rational'. Today at bedside, patient continues to report sustained improvement. He reports that he is feeling better and denies any new concerns. Tolerating medications and doesn't have any complaints. Sleeping and eating well. His responses remain coherent and related to questioning. He does not demonstrate profound disorganization or evidence of paranoid delusions. And he denies having any hallucinations. Insight and judgment are improving. Diagnostic Results: r/o schizophrenia r/o schizoaffective disorder Medication Change: No ( ) Medical Record Reviewed: Yes Mental Status Examination - Cognitive Function Orientation: Person, Place, Situation Memory: Intact Attention: WNL (some improvement) Concentration: WNL (some improvement) Association: Loose (some improvement) Fund of Knowledge: WNL - Mood Mood: Neutral (better) - Affect Affect: Constricted (some reactivity, ) - Speech Speech: Soft - Formal Thought Process Formal Thought Process: Hallucinations (denied all weekend), Delusions (none elicited all weekend), Paranoia (mildly guarded), Loosening of associations ( not overtly disorganized, clearing up), Circumstantial - Suicidal Ideation Suicidal Ideation: No - Homicidal Ideation Homicidal Ideation: No Goal/Treatment Plan - Goal/Treatment Plan Need for Continued Stay: Remain at risks for inpatient hospitalization, Severe depression anxiety, Discharge may exacerbated symptoms, Severe functional impairment Progress Toward Problem(s) and Goals/Treatment Plan: * c/w current tx and plan * No new lab results noted thus far this weekend * Vitals reviewed and noted below: Selected Entries 03/12/18 07:06 Temperature 97.9 F Pulse Rate 62 Respiratory 20 Rate Blood Pressure 104/52 L Estimated Date of D/C: 03/13/18
--- NOTE | 2018-03-13 10:33 | PCM.PYCHPN ---
Psychiatric Progress Note - Psychiatric Progress Note Patient seen today, length of contact: 25 min Patient Chief Complaint: "better" Problems Identified/Issues Discussed: Patient is 22-year male with self reported h/o bipolar disorder (most likely pt has schizophrenia spectrum vs schizoaffective disorder), two previous psychiatric admissions, both to the [facility] [place] involuntary unit, + compliance with [facility] outpatient program who was brought in by [facility] for evaluation of psychotic, paranoid and disorganized behavior. I reviewed recent notes which indicate that patient has been improving in mood and relatedness. He is more visible, interactive and friendly on the unit but generally still keeps to himself. Refused to participate in groups and I agree with nursing in that this refusal could be because of shyness. His responses remain coherent and related to questioning. He does not demonstrate profound disorganization, hypervigilance or evidence of paranoid delusions. And he denies having any hallucinations. SW spoke with patient's mother on Tuesday and mother felt that patient appeared "better" in which he was calmer and more rational'. Today, patient continues to report sustained improvement. He reports that he is feeling better and denies any new concerns. Tolerating medications and doesn' t have any complaints. Sleeping and eating well. Speech is underproductive and affect with his brief responses seem more unimaginative than guarded, secretive or psychotic. Insight and judgment are improving. Diagnostic Results: r/o schizophrenia r/o schizoaffective disorder Medication Change: No ( ) Medical Record Reviewed: Yes Mental Status Examination - Cognitive Function Orientation: Person, Place, Situation Memory: Intact Attention: WNL (some improvement) Concentration: WNL (some improvement) Association: Loose (some improvement) Fund of Knowledge: WNL - Mood Mood: Neutral (better) - Affect Affect: Constricted (some reactivity, ) - Speech Speech: Appropriate - Formal Thought Process Formal Thought Process: Hallucinations (denied all weekend), Delusions (none elicited all weekend), Paranoia (mildly guarded/shy), Loosening of associations (not overtly disorganized, clearing up), Circumstantial - Suicidal Ideation Suicidal Ideation: No - Homicidal Ideation Homicidal Ideation: No Goal/Treatment Plan - Goal/Treatment Plan Need for Continued Stay: Remain at risks for inpatient hospitalization, Severe depression anxiety, Discharge may exacerbated symptoms, Severe functional impairment Progress Toward Problem(s) and Goals/Treatment Plan: * c/w current tx and plan * No new lab results noted this weekend * Vitals reviewed and noted below: Selected Entries 03/13/18 06:35 Temperature 97.8 F Pulse Rate 57 L Respiratory 18 Rate Blood Pressure 124/56 L Estimated Date of D/C: 03/13/18
[2018-03-13] MEDS: INVEGA 3 MG PO SCH ×2 (14:23→21:20)
[2018-03-14 07:17] VITALS: RESP 20
[2018-03-14] MEDS: INVEGA 3 MG PO SCH ×2 (09:23→21:31)
--- NOTE | 2018-03-14 16:18 | PCM.PYCHPN ---
Psychiatric Progress Note - Psychiatric Progress Note Patient seen today, length of contact: 25 min Patient Chief Complaint: "I am doing alright, I think medication is working" Problems Identified/Issues Discussed: Suicide/ homicide prevention, past psychiatric h/o, current psychiatric symptoms , medical problems, risk/benefits and alternatives of medications, medications compliance, coping strategies, substance abuse h/o, relapse prevention, importance of follow up with psychiatrist and therapist, discharge plan. Medical Problems: pt denied any major medical issues pt is overweight Diagnostic Results: 03/06/18 11:52 03/06/18 11:52 Lab Results 03/07/18 08:00: RPR Nonreactive 03/07/18 08:00: Free T4 0.80, TSH 3rd Generation 1.71 03/07/18 08:00: Fasting Glucose 91, Triglycerides 172 H, Cholesterol 121 L, LDL Cholesterol Direct 32, HDL Cholesterol 52 03/06/18 11:52: Alcohol, Quantitative < 10 03/06/18 11:52: Salicylates < 1 L, Acetaminophen < 10.0 L 03/06/18 11:52: Urine Opiates Screen Negative, Urine Methadone Screen Negative, Ur Barbiturates Screen Negative, Ur Phencyclidine Scrn Negative, Ur Amphetamines Screen Negative, U Benzodiazepines Scrn Negative, U Oth Cocaine Metabols Negative, U Cannabinoids Screen Negative 03/06/18 11:52: Sodium 142, Potassium 4.3, Chloride 102, Carbon Dioxide 27, Anion Gap 17, BUN 15, Creatinine 0.9, Est GFR ( Amer) > 60, Est GFR (Non- Af Amer) > 60, Random Glucose 111 H, Calcium 10.0, Magnesium 1.8, Total Bilirubin 0.2, AST 37, ALT 60 H, Alkaline Phosphatase 49, Total Protein 7.7, Albumin 4.6, Globulin 3.2, Albumin/Globulin Ratio 1.4 03/06/18 11:52: Urine Color Yellow, Urine Appearance Clear, Urine pH 6.0, Ur Specific [place] 1.025, Urine Protein 30 H, Urine Glucose (UA) Negative, Urine Ketones Negative, Urine Blood Negative, Urine Nitrate Negative, Urine Bilirubin Negative, Urine Urobilinogen 0.2, Ur Leukocyte Esterase Negative, Urine RBC Negative, Urine WBC 0 - 2, Ur Epithelial Cells None, Urine Bacteria Mod 03/06/18 11:52: WBC 7.8, RBC 5.55, Hgb 13.0 L, Hct 41.0 L, MCV 73.9 L, MCH 23.4 L, MCHC 31.7, RDW 13.8, Plt Count 286, MPV 10.5, Gran % 62.7, Lymph % (Auto) 22.1, [place] % (Auto) 7.7 H, Eos % (Auto) 7.2 H, Baso % (Auto) 0.3, Gran # 4.88, Lymph # (Auto) 1.7, [place] # (Auto) 0.6, Eos # (Auto) 0.6, Baso # (Auto) 0.02 Vital Signs Temp Pulse Resp BP Pulse Ox 03/08/18 07:23 97.4 F L 57 L 20 107/64 03/07/18 16:00 66 131/73 03/07/18 07:00 98.2 F 78 80 H 103/70 03/07/18 06:52 98.2 F 78 20 103/70 03/06/18 14:41 98.0 F 77 120/89 99 03/06/18 14:19 98.0 F 79 18 99 03/06/18 11:05 99.5 F 77 16 117/74 98 DSM 5 Symptoms Update: shortly patient is 22-year male with self reported h/o bipolar disorder (most likely pt has schizophrenia spectrum vs schizoaffective disorder), two previous [place], [place] [facility] pt was [place] [facility] [place], pt was brought [facility] the hospital [facility] for evaluation of psychotic, disorganized behavior, pt disappeared from the house for two days prior this admission, pt was feeling paranoid, was not able to function, was hearing voices, pt also had thoughts of suicide by jumping into the water and drowning himself (pt did not act on it), pt does not know how to swim. pt failed outpatient program, needs further evaluation, stabilization, meds adjustment. pt was seen and examined in the treatment team meeting, patient presented relatively well, at times pt was smiling inappropriately, pt said he tolerates Invega well, no side effects observed or reported. as per staff pt is compliant with medications no agitation or aggression. 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 family meeting requested for tomorrow, but mother cannot come tomorrow, but . pt still presented to be disorganized, at times smiling and laughing inappropriately. pt reported tolerating meds well, not willing to increase dose of invega. as per pt he slept well. pt reported he feels comfortable in the unit, pt denied v/a/t hallucinations, but at times appears to be internally preoccupied and guarded. pt was educated about Invega injectable form, risk, benefits and alternatives discussed, but not sure about Invega sustenna. AIMS 0, no EPS, pt reported "Invega I like more than Risperdal" Impression: r/o schizophrenia r/o schizoaffective disorder Medication Change: No ( ) Medical Record Reviewed: Yes Mental Status Examination - Cognitive Function Orientation: Person, Place, Situation Memory: Intact Attention: WNL (some improvement) Concentration: WNL (some improvement) Association: Loose (some improvement) Fund of Knowledge: WNL - Mood Mood: Neutral (better) - Affect Affect: Constricted (some reactivity, ) - Speech Speech: Appropriate - Formal Thought Process Formal Thought Process: Hallucinations (denied all weekend), Delusions (none elicited all weekend), Paranoia (mildly guarded/shy), Loosening of associations (not overtly disorganized, clearing up), Circumstantial - Suicidal Ideation Suicidal Ideation: No - Homicidal Ideation Homicidal Ideation: No Goal/Treatment Plan - Goal/Treatment Plan Need for Continued Stay: Remain at risks for inpatient hospitalization, Severe depression anxiety, Discharge may exacerbated symptoms, Severe functional impairment Progress Toward Problem(s) and Goals/Treatment Plan: Milieu/structure/supportive therapy Medical consult appreciated, see medical team note for more detailed info SW consultation for discharge plan and social issues Med management Risperdal is on tapering dose now because pt was initiated on Invega and seems tolerating it well Invega was increased 03/11/18 6mg amhs for psychosis cogentin 1mg po amhs for EPS PRN meds Family involvement, collaterals appreciated (mother) Follow up on labs Will monitor closely Pt was educated about risk/benefits and alternatives of medications, coping strategies (safety plan, suicide prevention), relapse prevention, importance of follow up with psychiatrist and therapist, stay away from drugs/alcohol/smoking Estimated Date of D/C: 03/16/18
--- NOTE | 2018-03-14 18:42 | PCM.BM ---
<Nellie Parsons - Last Filed: 03/14/18 18:40> Treatment Plan Problems - Problems identified on initial assessmt Ineffective coping Date Initiated: 03/06/18 (03/14/18 HAS IMPROVED,HE VERBALIZED WILL BE LOOKING FOR ANOTHER JOB AFTER HIS D/C) Time Initiated: 16:45 Assessment reference: NA Status: Active Priority: 1 Comment: Impaired decision making Hopelessness Date Initiated: 03/06/18 Time Initiated: 16:45 Date resolved: 03/14/18 Assessment reference: NA Status: Active Priority: 2 Comment: Impaired dicision making Altered Sleep Pattern Date Initiated: 03/06/18 Time Initiated: 1645 Date resolved: 03/14/18 Assessment reference: NA Status: Active Priority: 3 Comment: Poor sleep,2-3 hours at night. Treatment assets and liabiliti Patient Assests: cooperative, motivated, ADL independent, good support system, negotiates basic needs - Milieu Protocol Maintain good personal hygiene: every shift Encourage regular showers, every shift Remind patient to perform daily oral care, every shift Assist patient to perform ADL's Conduct patient checks and document Observation sheet: Q15 minutes Maintain personal safety: every shift Educate patient to report safety concerns to staff, every shift Monitor environment for contraband/sharps Medication safety: Monitor for expected outcome, potential side effects: every shift, Assess barriers to learning: every shift, Assess readiness for medication education: every shift Milieu Narrative: Milieu/structure/supportive therapy Medical consult appreciated, see medical team note for more detailed info SW consultation for discharge plan and social issues Med management Risperdal is on tapering dose now because pt was initiated on Invega and seems tolerating it well Invega was increased 03/11/18 6mg amhs for psychosis cogentin 1mg po amhs for EPS PRN meds Family involvement, collaterals appreciated (mother) Follow up on labs Will monitor closely Pt was educated about risk/benefits and alternatives of medications, coping strategies (safety plan, suicide prevention), relapse prevention, importance of follow up with psychiatrist and therapist, stay away from drugs/alcohol/smoking Family Contact Family involvement: Family/SO is involved Family contact: Patient agrees to contact Family contact name: Venice Nunn(mother) [phone] Family contacted how many times per week?: 2 - Outside [facility] Care involvment: Information-sharing Agency contact name: [facility] Agency contact number: [phone] Discharge/Continuing Care - Education Needs Education Needs: Patient Medication, Patient Diagnosis/Disease Process, Patient Coping Skills, Patient Community resources, Patient Activities of Daily Living, Patient Nutrition, Patient Health Practices/Safety, Patient Personal Hygiene/ Grooming - Discharge Discharge Criteria: Normal sleep pattern, Reduction of target symptoms Discharge to:: Home - Treatment Team Participation Patient/Family/SO Statement: Milieu/structure/supportive therapy Medical consult appreciated, see medical team note for more detailed info SW consultation for discharge plan and social issues Med management Risperdal is on tapering dose now because pt was initiated on Invega and seems tolerating it well Invega was increased 03/11/18 6mg amhs for psychosis cogentin 1mg po amhs for EPS PRN meds Family involvement, collaterals appreciated (mother) Follow up on labs Will monitor closely Pt was educated about risk/benefits and alternatives of medications, coping strategies (safety plan, suicide prevention), relapse prevention, importance of follow up with psychiatrist and therapist, stay away from drugs/alcohol/smoking Treatment Plan Review - Problem Ineffective coping Time Initiated: 16:45 Hopelessness Time Initiated: 16:45 Altered Sleep Pattern Time Initiated: 16:45 <Raeann Ramesh - Last Filed: 03/15/18 14:32> - Diagnosis (1) Schizoaffective disorder Status: Acute Interventions: 03/15/18 14:32 psychosis is improving no agitation or aggression insight is improving sleep and appetite onelia <Pao Potter - Last Filed: 03/15/18 15:22>
[2018-03-15] MEDS: INVEGA 3 MG PO SCH ×2 (09:23→21:31)
--- NOTE | 2018-03-15 14:37 | PCM.PYCHPN ---
Psychiatric Progress Note - Psychiatric Progress Note Patient seen today, length of contact: 25 min Patient Chief Complaint: "I am doing alright, I think medication is working" Problems Identified/Issues Discussed: Suicide/ homicide prevention, past psychiatric h/o, current psychiatric symptoms , medical problems, risk/benefits and alternatives of medications, medications compliance, coping strategies, substance abuse h/o, relapse prevention, importance of follow up with psychiatrist and therapist, discharge plan. Medical Problems: pt denied any major medical issues pt is overweight Diagnostic Results: 03/06/18 11:52 03/06/18 11:52 Lab Results 03/07/18 08:00: RPR Nonreactive 03/07/18 08:00: Free T4 0.80, TSH 3rd Generation 1.71 03/07/18 08:00: Fasting Glucose 91, Triglycerides 172 H, Cholesterol 121 L, LDL Cholesterol Direct 32, HDL Cholesterol 52 03/06/18 11:52: Alcohol, Quantitative < 10 03/06/18 11:52: Salicylates < 1 L, Acetaminophen < 10.0 L 03/06/18 11:52: Urine Opiates Screen Negative, Urine Methadone Screen Negative, Ur Barbiturates Screen Negative, Ur Phencyclidine Scrn Negative, Ur Amphetamines Screen Negative, U Benzodiazepines Scrn Negative, U Oth Cocaine Metabols Negative, U Cannabinoids Screen Negative 03/06/18 11:52: Sodium 142, Potassium 4.3, Chloride 102, Carbon Dioxide 27, Anion Gap 17, BUN 15, Creatinine 0.9, Est GFR ( Amer) > 60, Est GFR (Non- Af Amer) > 60, Random Glucose 111 H, Calcium 10.0, Magnesium 1.8, Total Bilirubin 0.2, AST 37, ALT 60 H, Alkaline Phosphatase 49, Total Protein 7.7, Albumin 4.6, Globulin 3.2, Albumin/Globulin Ratio 1.4 03/06/18 11:52: Urine Color Yellow, Urine Appearance Clear, Urine pH 6.0, Ur Specific [place] 1.025, Urine Protein 30 H, Urine Glucose (UA) Negative, Urine Ketones Negative, Urine Blood Negative, Urine Nitrate Negative, Urine Bilirubin Negative, Urine Urobilinogen 0.2, Ur Leukocyte Esterase Negative, Urine RBC Negative, Urine WBC 0 - 2, Ur Epithelial Cells None, Urine Bacteria Mod 03/06/18 11:52: WBC 7.8, RBC 5.55, Hgb 13.0 L, Hct 41.0 L, MCV 73.9 L, MCH 23.4 L, MCHC 31.7, RDW 13.8, Plt Count 286, MPV 10.5, Gran % 62.7, Lymph % (Auto) 22.1, [place] % (Auto) 7.7 H, Eos % (Auto) 7.2 H, Baso % (Auto) 0.3, Gran # 4.88, Lymph # (Auto) 1.7, [place] # (Auto) 0.6, Eos # (Auto) 0.6, Baso # (Auto) 0.02 Vital Signs Temp Pulse Resp BP Pulse Ox 03/08/18 07:23 97.4 F L 57 L 20 107/64 03/07/18 16:00 66 131/73 03/07/18 07:00 98.2 F 78 80 H 103/70 03/07/18 06:52 98.2 F 78 20 103/70 03/06/18 14:41 98.0 F 77 120/89 99 03/06/18 14:19 98.0 F 79 18 99 03/06/18 11:05 99.5 F 77 16 117/74 98 DSM 5 Symptoms Update: shortly patient is 22-year male with self reported h/o bipolar disorder (most likely pt has schizophrenia spectrum vs schizoaffective disorder), two previous psychiatric admissions, both to the [facility] [place], pt was following up by [facility] outpatient program, pt was brought to the hospital by [facility] for evaluation of psychotic, disorganized behavior, pt disappeared from the house for two days prior this admission, pt was feeling paranoid, was not able to function, was hearing voices, pt also had thoughts of suicide by jumping into the water and drowning himself (pt did not act on it), pt does not know how to swim. pt failed outpatient program, needs further evaluation, stabilization, meds adjustment. pt was seen and examined at the dinning area, patient presented relatively well , at times pt was smiling inappropriately, pt said he tolerates Invega well, no side effects observed or reported. as per staff pt is compliant with medications no agitation or aggression. pts' mother could not attend family meeting today, mother will come tomorrow for the family meeting. 03/16/18. pt presented better today, seems pt is less responsive to internal stimuli, more coherent, only at times smiling and laughing inappropriately. pt reported tolerating meds well, not willing to increase dose of invega. as per pt he slept well. pt reported he feels comfortable in the unit, pt denied v/a/t hallucinations, but at times appears to be internally preoccupied and guarded. pt was educated about Invega injectable form, risk, benefits and alternatives discussed, but not sure about Invega sustenna. AIMS 0, no EPS, pt reported "Invega I like more than Risperdal" Impression: r/o schizophrenia r/o schizoaffective disorder Medication Change: No ( ) Medical Record Reviewed: Yes Mental Status Examination - Cognitive Function Orientation: Person, Place, Situation Memory: Intact Attention: WNL (some improvement) Concentration: WNL (some improvement) Association: Loose (some improvement) Fund of Knowledge: WNL - Mood Mood: Neutral (better) - Affect Affect: Constricted (some reactivity, ) - Speech Speech: Appropriate - Formal Thought Process Formal Thought Process: Hallucinations (denied all weekend), Delusions (none elicited all weekend), Paranoia (mildly guarded/shy), Loosening of associations (not overtly disorganized, clearing up), Circumstantial - Suicidal Ideation Suicidal Ideation: No - Homicidal Ideation Homicidal Ideation: No Goal/Treatment Plan - Goal/Treatment Plan Need for Continued Stay: Remain at risks for inpatient hospitalization ( improving), Severe depression anxiety, Discharge may exacerbated symptoms, Severe functional impairment Progress Toward Problem(s) and Goals/Treatment Plan: Milieu/structure/supportive therapy Medical consult appreciated, see medical team note for more detailed info SW consultation for discharge plan and social issues Med management Risperdal is on tapering dose now because pt was initiated on Invega and seems tolerating it well Invega was increased 03/11/18 6mg amhs for psychosis cogentin 1mg po amhs for EPS PRN meds Family meeting 03/16/18, then possible d/c Follow up on labs Will monitor closely Pt was educated about risk/benefits and alternatives of medications, coping strategies (safety plan, suicide prevention), relapse prevention, importance of follow up with psychiatrist and therapist, stay away from drugs/alcohol/smoking Estimated Date of D/C: 03/16/18
[2018-03-16 07:11] VITALS: BP 102/61; PULSE 66; TEMP 97.5
[2018-03-16] MEDS: INVEGA 3 MG PO SCH (09:20)
--- NOTE | 2018-03-16 13:50 | PCM.PYCHDC ---
Mental Status Examination - Mental Status Examination Orientation: Person, Place, Situation, Time Memory: Intact Mood: Neutral Affect: Constricted (but reactive, mood congruent) Speech: Appropriate Attention: WNL Concentration: WNL Association: WNL Fund of Knowledge: WNL Formal Thought Process: No Impairment Description of patient's judgement and insight: Pt has improved insight into mental and medical illness, pt was compliant with medications and unit rules and regulations, pt was going to groups, was calm, cooperative, socially appropriate, no behavioral incidents, no agitation, no aggression. Psychotic Thoughts and Behaviors: Pt denied v/a/t hallucinations, denied paranoid ideations, pt does not appear to be psychotic, and thought process is goal directed. Suicidal Ideation: No Current Homicidal Ideation?: No Plan: pt adamantly denied thoughts of harming self or others denied intent or plan. Discharge Summary - Discharge Note Reason for Hospitalization: pt was admitted to the psychiatric inpatient unit for evaluation of psychosis, disorganized behavior, possible suicidal ideation, pt was compliant with meds but dose was decreased recently. Psychiatric History (includes Medical, Family, Personal Hx): see HPI Laboratory Data: 03/06/18 11:52 03/06/18 11:52 Lab Results 03/07/18 08:00: RPR Nonreactive 03/07/18 08:00: Free T4 0.80, TSH 3rd Generation 1.71 03/07/18 08:00: Fasting Glucose 91, Triglycerides 172 H, Cholesterol 121 L, LDL Cholesterol Direct 32, HDL Cholesterol 52 03/06/18 11:52: Alcohol, Quantitative < 10 03/06/18 11:52: Salicylates < 1 L, Acetaminophen < 10.0 L 03/06/18 11:52: Urine Opiates Screen Negative, Urine Methadone Screen Negative, Ur Barbiturates Screen Negative, Ur Phencyclidine Scrn Negative, Ur Amphetamines Screen Negative, U Benzodiazepines Scrn Negative, U Oth Cocaine Metabols Negative, U Cannabinoids Screen Negative 03/06/18 11:52: Sodium 142, Potassium 4.3, Chloride 102, Carbon Dioxide 27, Anion Gap 17, BUN 15, Creatinine 0.9, Est GFR ( Amer) > 60, Est GFR (Non- Af Amer) > 60, Random Glucose 111 H, Calcium 10.0, Magnesium 1.8, Total Bilirubin 0.2, AST 37, ALT 60 H, Alkaline Phosphatase 49, Total Protein 7.7, Albumin 4.6, Globulin 3.2, Albumin/Globulin Ratio 1.4 03/06/18 11:52: Urine Color Yellow, Urine Appearance Clear, Urine pH 6.0, Ur Specific [place] 1.025, Urine Protein 30 H, Urine Glucose (UA) Negative, Urine Ketones Negative, Urine Blood Negative, Urine Nitrate Negative, Urine Bilirubin Negative, Urine Urobilinogen 0.2, Ur Leukocyte Esterase Negative, Urine RBC Negative, Urine WBC 0 - 2, Ur Epithelial Cells None, Urine Bacteria Mod 03/06/18 11:52: WBC 7.8, RBC 5.55, Hgb 13.0 L, Hct 41.0 L, MCV 73.9 L, MCH 23.4 L, MCHC 31.7, RDW 13.8, Plt Count 286, MPV 10.5, Gran % 62.7, Lymph % (Auto) 22.1, [place] % (Auto) 7.7 H, Eos % (Auto) 7.2 H, Baso % (Auto) 0.3, Gran # 4.88, Lymph # (Auto) 1.7, [place] # (Auto) 0.6, Eos # (Auto) 0.6, Baso # (Auto) 0.02 Vital Signs Temp Pulse Resp BP Pulse Ox 03/16/18 07:10 97.5 F L 66 20 102/61 03/15/18 16:00 78 115/56 L 03/15/18 07:00 97.4 F L 68 20 110/56 L 03/15/18 06:56 97.4 F L 68 20 110/56 L 03/14/18 16:00 90 149/76 03/14/18 07:16 98.2 F 65 20 110/50 L 03/13/18 15:40 69 118/72 03/13/18 06:35 97.8 F 57 L 18 124/56 L 03/12/18 16:00 68 106/43 L 03/12/18 07:06 97.9 F 62 20 104/52 L 03/11/18 16:00 68 106/49 L 03/11/18 07:01 98.1 F 60 20 104/52 L 03/10/18 16:37 67 122/65 03/10/18 06:49 98.1 F 73 20 130/65 03/09/18 16:00 77 120/72 03/09/18 07:11 97.6 F 53 L 20 122/67 03/08/18 16:10 74 114/60 03/08/18 07:23 97.4 F L 57 L 20 107/64 03/07/18 16:00 66 131/73 03/07/18 07:00 98.2 F 78 80 H 103/70 03/07/18 06:52 98.2 F 78 20 103/70 03/06/18 14:41 98.0 F 77 120/89 99 03/06/18 14:19 98.0 F 79 18 99 03/06/18 11:05 99.5 F 77 16 117/74 98 Consultations:: List each consultation separately and include: 1. Reason for request. 2. Findings. 3. Follow-up Consultations: pt is relatively healthy, will consider to call if pt will have any physical complaints. Summary of Hospital Course include:: 1. Description of specific treatment plan utilized for patients during their course of treatmen. 2. Summarize the time- course for resolution of acute symptoms and/or regressed behaviors. 3. Describe issues identified and worked on during hospitalization. 4. Describe medication utilized. 5. Describe medical problems identified and treated. 6. Reassessment of suicide risk Summary of Hospital Course: shortly patient is 22-year male with self reported h/o bipolar disorder (most likely pt has schizophrenia spectrum vs schizoaffective disorder), two previous psychiatric admissions, both to [place] [facility] [place], pt was following up by [facility] [place] program, pt was brought to the hospital by [facility] for evaluation of psychotic, disorganized behavior, pt disappeared from the house for two days prior this admission, pt was feeling paranoid, was not able to function, was hearing voices, pt also had thoughts of suicide by jumping into the water and drowning himself (pt did not act on it), pt does not know how to swim. pt failed outpatient program, needed further evaluation, stabilization, meds adjustment. pt was seen and examined discussed with staff and pt's mother prior to admission. during the initial assessment pt presented with acceptable personal hygiene, seems to be careless abut his appearance, good ADLs, not shaved, wears baggy clothing. Pt seems to be reliable historian, at the same time pt's thought process seems to be mildly disorganized, pt also had inappropriate affect and was giggling inappropriately. pt said that the dose of the risperdal was decreased recently and he started to feel "unease", pt said that he was feeling that people were talking about him and looking at him in certain way, pt said he was feeling so bad that he needed "to leave my job earlier", pt said he was wondering on streets, pt said he was hearing voices "male and female, they put me down" pt denied command type hallucinations, pt denied that he ever act on the voices, pt said voices were commenting on his behavior. Pt said "I was staying on streets, I thought about life, I thought may be I need to end it all, I thought about drowning, I don't know how to swim", at the same time pt said "It was just thought". pt also said that he never tried to kill self, contracted for safety during the interview. pt denied h/o being abused. pt denied panic symptoms, denied MENDOZA symptoms. pt said he has h/o smoking Marijuana, but not presently, pt reported that he smoked once while was wondering on streets. pt denied smoking cigarettes, denied drinking alcohol. Past psychiatric h/o: pt said he was officially dx with bipolar disorder, but on further questioning pt said that he had elevated mood and feeling great "in my childhood, since age of 6 till 18", pt said pt had "manic episodes in this which led pt to the hospitalization to the [facility], which was related to the fact that pt was noncompliant with risperdal "I thought I was doing fine , I decided to stop and within two months I was admitted to the Hospital". pt said first hospitalization was in 2015 when pt was in the freshman college, pt was admitted to [facility], pt reported back then he used some marijuana and "my urine was positive for something else". Family h/o: this ad copy writer spoke to the pt's mother, pt gave permission, as per mother both sides of the family have h/o mental illness, not known h/o suicidal attempts. as per mother pt's risperdal was decreased from 4mg po daily to 2mg hs. as per mother pt was "I see people laughing" and auditory hallucinations "I hear voices that put me down". as per staff pt is calm and cooperative, compliant with meds, but not participating in unit activities. 03/06/18 11:52 03/06/18 11:52 Lab Results 03/07/18 08:00: Free T4 0.80, TSH 3rd Generation 1.71 03/07/18 08:00: Fasting Glucose 91, Triglycerides 172 H, Cholesterol 121 L, LDL Cholesterol Direct 32, HDL Cholesterol 52 03/06/18 11:52: Alcohol, Quantitative < 10 03/06/18 11:52: Salicylates < 1 L, Acetaminophen < 10.0 L 03/06/18 11:52: Urine Opiates Screen Negative, Urine Methadone Screen Negative, Ur Barbiturates Screen Negative, Ur Phencyclidine Scrn Negative, Ur Amphetamines Screen Negative, U Benzodiazepines Scrn Negative, U Oth Cocaine Metabols Negative, U Cannabinoids Screen Negative 03/06/18 11:52: Sodium 142, Potassium 4.3, Chloride 102, Carbon Dioxide 27, Anion Gap 17, BUN 15, Creatinine 0.9, Est GFR ( Amer) > 60, Est GFR (Non- Af Amer) > 60, Random Glucose 111 H, Calcium 10.0, Magnesium 1.8, Total Bilirubin 0.2, AST 37, ALT 60 H, Alkaline Phosphatase 49, Total Protein 7.7, Albumin 4.6, Globulin 3.2, Albumin/Globulin Ratio 1.4 03/06/18 11:52: Urine Color Yellow, Urine Appearance Clear, Urine pH 6.0, Ur Specific [place] 1.025, Urine Protein 30 H, Urine Glucose (UA) Negative, Urine Ketones Negative, Urine Blood Negative, Urine Nitrate Negative, Urine Bilirubin Negative, Urine Urobilinogen 0.2, Ur Leukocyte Esterase Negative, Urine RBC Negative, Urine WBC 0 - 2, Ur Epithelial Cells None, Urine Bacteria Mod 03/06/18 11:52: WBC 7.8, RBC 5.55, Hgb 13.0 L, Hct 41.0 L, MCV 73.9 L, MCH 23.4 L, MCHC 31.7, RDW 13.8, Plt Count 286, MPV 10.5, Gran % 62.7, Lymph % (Auto) 22.1, [place] % (Auto) 7.7 H, Eos % (Auto) 7.2 H, Baso % (Auto) 0.3, Gran # 4.88, Lymph # (Auto) 1.7, [place] # (Auto) 0.6, Eos # (Auto) 0.6, Baso # (Auto) 0.02 Vital Signs Temp Pulse Resp BP Pulse Ox 03/07/18 07:00 98.2 F 78 80 H 103/70 03/07/18 06:52 98.2 F 78 20 103/70 03/06/18 14:41 98.0 F 77 120/89 99 03/06/18 14:19 98.0 F 79 18 99 03/06/18 11:05 99.5 F 77 16 117/74 98 pt was stabilized on the following medications: Risperdalwas tapered off pt was initiated on Invega which was slowly titrated to 6mg po bid for psychosis cogentin 1mg po amhs for EPS pt tolerated medications well, no side effects observed or reported, AIMS 0, no EPS. Over the course of this hospitalization pt was attending groups, pt also had medication management, had therapeutic milieu. Overall pt improved significantly, pt's affect became brighter, pt was less depressed, has realistic future oriented plans, pt also does not appear to be psychotic, or anxious, pt was socially appropriate, no behavioral issues, pts insight improved as well and soon pt deemed to be ready for discharge. prior to discharge this ad copy writer requested to have a family meeting with pt's mother family meeting went well, both pt and his mother were educated about dx and treatment options in details, all questions answered, concerns addressed pt's mother was willing to accept pt back home, pt was in agreement to be f/u with IOP program at [facility], as well as he wants to think about Invega sustenna IM in the near future, as of now pt did not want to have injection. mother was appreciative, said that at this time pt looks "normal himself, he looks much better". from observation, pt's mother seems to be overprotecting. D/C took more than 45 min. At the time of the discharge pt denied been depressed, denied thoughts of harming self or others, denied psychotic symptoms, and pt does not appeared to be psychotic, denied been anxious, pt is not in imminent danger to self or others, will be following up at [facility], information about follow up appointment, time and address provided to the pt, it is patient responsibility to follow up with outpatient clinic, PMD as well as specialists (see SW note for more detailed information). In case pt will need to obtain results of studies pending at discharge pt was provided with contact information of Psychiatric Inpatient unit [phone] as well as Medical Record Department [phone]. pt denied using drugs, denied drinking alcohol, denied smoking cigarettes pt was provided with prescriptions for all of medications (please see medication reconciliation form) Pt was educated about safety plan in case of worsening of symptoms or in case of suicidal or homicidal ideation call 911 or go to the nearest ER, also was educated to take meds as prescribed and stay away from drugs, pt verbalized understanding. - Diagnosis (1) Schizoaffective disorder Current Visit: Yes Status: Chronic Priority: High - Final Diagnosis (DSM 5) Condition upon Discharge: GOOD Disposition: HOME/ ROUTINE Follow-up Treatment Plan: At the time of the discharge pt denied been depressed, denied thoughts of harming self or others, denied psychotic symptoms, and pt does not appeared to be psychotic, denied been anxious, pt is not in imminent danger to self or others, will be [facility] up at [facility], information about follow up appointment, time and address provided to the pt, it is patient responsibility to follow up with outpatient clinic, PMD as well as specialists (see SW note for more detailed information). In case pt will need to obtain results of studies pending at discharge pt was provided with contact information of Psychiatric Inpatient unit [phone] as well as Medical Record Department [phone]. pt denied using drugs, denied drinking alcohol, denied smoking cigarettes pt was provided with prescriptions for all of medications (please see medication reconciliation form) Pt was educated about safety plan in case of worsening of symptoms or in case of suicidal or homicidal ideation call 911 or go to the nearest ER, also was educated to take meds as prescribed and stay away from drugs, pt verbalized understanding. Prescriptions/Medication Reconciliation: Benztropine [Cogentin] 1 mg PO AMHS #30 tab Paliperidone [Invega] 6 mg PO AMHS #30 tab.er.24 - Smoking Cessation Smoking Cessation Medication prescribed: No Reason for not providing: denied smoking - Antipsychotic Medications Pt discharged on 2 or more routine antipsychotic medications: No
== END 2018-03-16 15:00 | disposition home or self-care (01) | DRG 885 ==
LOC: ED 10:43 → ERH 14:00 → PSYC 15:30
PROVIDERS: ADMIT Psychiatry & Neurology Psychiatry; ATTEND Psychiatry & Neurology Psychiatry
PROC: GZ3ZZZZ Medication Management (ICD-10-PCS; principal; 2018-03-06)
DX: F25.9 Schizoaffective disorder, unspecified (principal); F12.90 Cannabis use, unspecified, uncomplicated; E66.3 Overweight